=== PATIENT | male | born 1965 | race African-American/Black ===

== ENCOUNTER 2019-03-14 09:31 | Emergency (ER) | payer OTHER ==
[~2019-03-14] VITALS: Ht 180.3 cm; Wt 82.0 kg
[2019-03-14] MEDS ORDERED: KETOROLAC 30MG/ML VIAL IM ONE (10:15)
[2019-03-14 10:16] VITALS: BP 137/98
== END 2019-03-14 12:08 | disposition home or self-care (01) ==
LOC: ER 09:31
DX: R51 Headache (principal); S16.1XXA Strain of muscle, fascia and tendon at neck level, initial encounter; I10 Essential (primary) hypertension; V44.5XXA Car driver injured in collision with heavy transport vehicle or bus in traffic accident, initial encounter; Y93.9 Activity, unspecified; Y92.488 Other paved roadways as the place of occurrence of the external cause
CPT/HCPCS: 70450; 72125; 96372; 99284; J1885; Z7610